=== PATIENT | female | born 1985 | race Caucasian/White ===

== ENCOUNTER 2018-01-12 03:45 | Emergency (ER) | payer MEDICAID, SELFPAY ==
--- NOTE | 2018-01-12 03:45 | DT_ITS ---
This patient was seen during an EMR downtime January 05, 2018 - January 12, 2018. This patient may have a combination of paper and electronic documentation or all paper documentation. All documentation is viewable within the e-chart portion of [facility] for each patient visit.
--- NOTE | 2018-01-12 04:00 | RAD_ITS ---
STUDY: X-RAY - RIGHT HAND REASON FOR EXAM: Female, 32 years old. Pain and swelling. TECHNIQUE: 3 view(s) of the hand. COMPARISON: None. FINDINGS: Normal radiocarpal articulation. Normal distal radioulnar joint. Normal visualized carpal bones. Normal carpal articulations Normal carpometacarpal articulation of the thumb. Normal second through fifth carpometacarpal joints. Normal metacarpi. No erosions. Normal metacarpophalangeal joint of the thumb. Normal interphalangeal joint of the thumb. Normal proximal and distal phalanges of the thumb. Normal metacarpophalangeal joints of the second through fifth fingers. Possible flexion deformity proximal interphalangeal joint of the little finger. Normal phalanges of the second through fifth fingers. Soft tissue swelling dorsum of hand. RAD/Hand Min 3 Views IMPRESSION: Soft tissue swelling, no fracture identified. Flexion deformity PIP joint of the finger. Electronically Signed: Da Dean MD at 4:46 EDT , Service support ,
== END 2018-01-12 03:48 | disposition short-term general hospital (02) ==
LOC: ED 08:46
PROVIDERS: Emergency Provider Emergency Medicine; Family Provider Family Medicine; PCP Family Medicine
DX: T79.A11A Traumatic compartment syndrome of right upper extremity, initial encounter (principal); X58.XXXA Exposure to other specified factors, initial encounter; Z79.899 Other long term (current) drug therapy
CPT/HCPCS: 36415; 73130; 96374; 96375; 99284; A4216; J2405

== ENCOUNTER 2020-12-15 13:29 | Outpatient (RCR) | payer MEDICAID, SELFPAY ==
[2020-12-15 11:45] VITALS: BP 125/70; PULSE 109; TEMP 37.6
--- NOTE | 2020-12-15 13:05 | HP.PCM_ITS ---
History of Present Illness Date of Service: 12/15/20 Chief Complaint: Left thigh ulcer, several other ulcers of lower extremities History of Wound: Sil is a pleasant 34-year-old white female who presents to the wound healing center today (12/15/2020) for initial evaluation of her chronic nonhealing ulcers. She was referred here by her infectious disease physician, Lianet Ortez. She has been scheduled for appointments several times at the [facility] wound healing center, but has frequently no-showed. Her past medical history is significant for substance abuse (including IV substance abuse (heroin)), MRSA, and hepatitis C. she states she has been sober for a year, however her note from infectious disease reports she had a relapse around March 2020. She is currently on Subutex. Her partner also has a history of substance abuse and suffers from similar ulcers. They live together. She has not been treated for hep C, but desires to undergo treatment with her partner. Her primary concern today is her left thigh ulcer, which she states is the newest of her ulcers and occurred in the last several months. However, she reports her left thigh ulcer has decreased in size in the last several weeks. When asked how long her remaining ulcers have been present, she was unable to provide specific detail but reports they have been present for years. She states that her right lateral leg ulcer and left dorsal foot ulcer have been the most longstanding of her chronic ulcers. She has ulcers present on her left arm, left thigh, left dorsal foot, right warren, right lateral leg, right medial foot and right second toe. She reports she was previously seen at a wound healing center but stopped seeing them due to having a negative experience. At that time, she was advised to increase her protein and vitamin C. She reports poor nutritional status, stating she is a very picky eater. She is a smoker. She has been applying nonstick dressings to her ulcers daily and cleansing them intermittently with Hibiclens. She denies any known history of vascular disease. She has not been on any antibiotics in recent months. In the past she was treated with doxycycline and Bactrim for MRSA, and reports tolerating these well. A wound culture collected 07/07/2020 from an abscess demonstrated growth of skin jason which did not include staph aureus, beta-hemolytic streptococci or P. aeruginosa. The patient denies fever, chills, general malaise, or poor appetite. The patient has not had increased redness, swelling, or purulent/malodorous drainage from affected area. [facility] Medical History (Updated 12/15/20 @ 13:17 by Ely Muro NP, BUSINESS INTELLIGENCE DIRECTOR-C) Chronic ulcer of left foot with fat layer exposed Chronic ulcer of left thigh with fat layer exposed Chronic ulcer of right foot with fat layer exposed Chronic ulcer of right leg with fat layer exposed Nonhealing ulcer of upper extremity with fat layer exposed Home Medications oxycodone-acetaminophen 1 - 2 tab PO Q4H PRN PRN #10 tab 01/18/15 [Rx Last Taken 01/19/15] promethazine 25 mg PO Q6H PRN PRN #10 tablet 01/18/15 [Rx Last Taken 01/19/15] oxycodone-acetaminophen [Percocet 7.5-325 mg Tablet] 1 tab PO Q6H PRN PRN #10 tab 02/03/15 [Rx Last Taken Unknown] cyclobenzaprine 10 mg PO TID PRN #20 tablet 02/06/15 [Rx Last Taken Unknown] doxycycline monohydrate 100 mg PO BID 14 Days #28 cap 12/15/20 [Rx Last Taken Unknown] Allergy/AdvReac Type Severity Reaction Status Date / Time No Known Allergies Allergy Verified 07/19/14 18:11 Social History Smoking Status: Current every day smoker ROS Constitutional Constitutional: Denies chills, fever(s) or night sweats Eyes Eyes: Denies change in vision or double vision ENT HEENT: Denies lip swelling or tongue swelling Cardiovascular Cardiovascular: Denies chest pain, leg edema or palpitations Respiratory/Chest Respiratory/Chest: Denies cough, shortness of breath at rest, shortness of breath with exertion or wheezing Gastrointestinal Gastrointestinal: Denies diarrhea, nausea or vomiting Genitourinary Genitourinary: Denies dysuria or hematuria Musculoskeletal Musculoskeletal: Denies abnormal gait, extremity pain, muscle weakness, numbness or tingling Integumentary Integumentary: Reports wounds; Denies rash Neurologic Neurologic: Denies abnormal gait, abnormal speech or focal weakness Endocrine Endocrinology: Denies cold intolerance, heat intolerance, polydipsia or polyuria Hematologic/Lymphatic Hematologic/Lymphatic: Denies easy bleeding or easy bruising Vital Signs Vital Signs Vital Signs: 12/15/20 11:45 Temperature 99.6 F H Temperature Source Temporal Pulse Rate 109 H Blood Pressure 125/70 H Blood Pressure Mean 88 Blood Pressure Source Monitor Blood Pressure Position Semi-Fowlers Blood Pressure Location Right Arm Physical Exam Const alert and no apparent distress; Negative for well nourished General Appearance: cooperative and anxious; Negative for in distress HEENT Head and Scalp: normocephalic and atraumatic Eyes EOMs intact bilaterally Neck supple and no JVD Resp normal respiratory effort, normal air movement and no use of accessory muscles Auscultation: clear to auscultation bilaterally and rhonchi right upper; Negative for crackles, rales or wheezes Cardio regular rate and regular rhythm GI normal to inspection, nondistended, normoactive bowel sounds Extremity normal capillary refill, no joint enlargement, no clubbing, cyanosis or edema, no calf tenderness and no pedal edema Peripheral Pulses: Yes dorsalis pedis pulses present bilateral 2+ Skin Rashes: No no rashes Wounds: wounds noted No malodorous Wound Narrative: Numerous wounds present with subcutaneous layer exposed. No tunneling, undermining, or probing to bone noted. Left arm, left thigh, left dorsal foot, right warren, right second toe, right medial foot, and right lateral leg worked up for ulcers. Copious amounts of slough and devitalized tissue present on the right lateral leg and left dorsal foot ulcers. Large amounts of slough and devitalized tissue present on all other ulcers. No rashes noted. No periulcer edema or warmth noted at any of the sites. Patient has severe intolerance to palpation/manipulation of ulcers. Neuro oriented x3, moves all extremities and no focal motor deficits Psych mental status grossly normal, cooperative and affect normal Debridement Note Debridement Note Post-Debridement Measurements and Additional Note: Post-Debridement Measurements/Treatment DAYO - Nurse 1 - General Ulcer Assessment Start: 12/15/20 11:15 Freq: Status: Active Protocol: HANNAH Activity Type Activity Date Activity User E-Sign Co-Sign Detail Recorded Client Recorded Date Recorded By Document 12/15/20 11:15 DL [id number] 12/15/20 11:17 DL Document 12/15/20 11:45 KR [id number] 12/15/20 11:53 KR 12/15/20 12/15/20 11:15 11:45 - Today's Visit Information Type of service Initial Visit Arrival Mode Ambulatory Patient Identification Verified (Name & Yes ) Vital Signs Temperature (97.8 F-99.1 F) 99.6 F H Temperature Source Temporal Pulse Rate (60-100) 109 H Pulse Location Monitor Blood Pressure (90/60-120/80) 125/70 H Blood Pressure Mean 88 Source Monitor Position Semi-Fowlers Blood Pressure Location Right Arm History Since Last Visit- (Skip if this is Patient's initial visit) Have you changed medications since your No last visit? Any new allergies or adverse reactions No Had a fall/change in ADL's that may No increase risk of falls Signs or symptoms of abuse and/or No neglect since last visit Have you been in the hospital since your No last visit? Has dressing in place as prescribed No Has compression in place as prescribed N/A Has offloadiing in place as prescribed N/A Experienced any changes in pain level or No management Left Footwear Regular Shoe Right Footwear Regular Shoe Pain Scale: 0-10 Numeric Is Patient Pain Free? Yes Lower Extremity Assessment/ Foot Assessment/ Toe Nail Assessment Left -Posterior Tibial Palpable Yes -Posterior Tibial Doppler Multiphasic -Dorsalis Pedis Palpable Yes -Dorsalis Pedis Doppler Multiphasic -Extremity Color Mottled -Hair Growth on Legs No -Hair Growth on Toes No -Temperature of Extremity Cool -Capillary Refill Less than 3 Seconds -Dependent Rubor No -Blanched when Elevated No -Lipodermatosclerosis No -Other Deformity No -Prior Foot Ulcer No -Charcot Joint No -Prior Amputation No -Thick Yes -Discolored Yes -Deformed No -Improper Length & Hygeine No Right -Posterior Tibial Palpable Yes -Posterior Tibial Doppler Multiphasic -Dorsalis Pedis Palpable Yes -Dorsalis Pedis Doppler Multiphasic -Extremity Color Mottled -Hair Growth on Legs No -Hair Growth on Toes No -Temperature of Extremity Cold -Capillary Refill Less than 3 Seconds -Dependent Rubor No -Blanched when Elevated No -Lipodermatosclerosis No -Other Deformity No -Prior Foot Ulcer No -Charcot Joint No -Prior Amputation No -Thick Yes -Discolored Yes -Deformed No -Improper Length & Hygeine No Neuropathy Assessment Feet - Top Side and Bottom <Entered> (a) (a) 1 - + WC - Nurse 1 - General Ulcer Measurement Start: 12/15/20 11:15 Freq: Status: Active Protocol: Activity Type Activity Date Activity User E-Sign Co-Sign Detail Recorded Client Recorded Date Recorded By Document 12/15/20 11:45 SARANYA [id number] 12/15/20 11:53 SARANYA 12/15/20 11:45 Wound Center Nurse 1 #8 Right 2cd Toe -Current Size (cm) - Length 3.6 -Current Size (cm) - Width 2.4 -Current Size (cm) - Depth 0.2 -Total Square Cm 8.64 -Exudate Amt Medium -Exudate Type Serosanguineous -Wound Margin Distinct, Outline Attached -Granulation Amt Medium (34-66%) -Granulation Quality Red -Necrosis Amt Medium (34-66%) -Necrotic Tissue Type Adherent Slough -Texture (Manda-wound Skin Appearance) Assessed, Scarring -Moisture (Manda-wound Skin Appearance) No Abnormality, Assessed -Color (Manda-wound Skin Appearance) No Abnormality, Assessed -Temperature (Manda-wound Skin No Abnormality Appearance) (Pt Warm) -Tenderness on Palpation (Manda-wound No Skin Appearance) -Ulcer Cleansing Rinsed/ Irrigated with Saline -Foul Odor after Cleansing No -Anesthetic Used 4% Lidocaine Solution,5% Lidocaine Gel #7 Right Medial Foot -Current Size (cm) - Length 0.9 -Current Size (cm) - Width 1.8 -Current Size (cm) - Depth 0.2 -Total Square Cm 1.62 -Exudate Amt Medium -Exudate Type Serosanguineous -Wound Margin Distinct, Outline Attached -Granulation Amt Medium (34-66%) -Granulation Quality Red -Necrosis Amt Medium (34-66%) -Necrotic Tissue Type Adherent Slough -Texture (Manda-wound Skin Appearance) Assessed, Scarring -Moisture (Manda-wound Skin Appearance) No Abnormality, Assessed -Color (Manda-wound Skin Appearance) No Abnormality, Assessed -Temperature (Manda-wound Skin No Abnormality Appearance) (Pt Warm) -Tenderness on Palpation (Manda-wound No Skin Appearance) -Ulcer Cleansing Rinsed/ Irrigated with Saline -Foul Odor after Cleansing No -Anesthetic Used 4% Lidocaine Solution,5% Lidocaine Gel #6 Right lat foot -Current Size (cm) - Length 2 -Current Size (cm) - Width 1.9 -Current Size (cm) - Depth 0.2 -Total Square Cm 3.8 -Exudate Amt Small -Exudate Type Serosanguineous -Wound Margin Distinct, Outline Attached -Granulation Amt Medium (34-66%) -Granulation Quality Red -Necrosis Amt Medium (34-66%) -Necrotic Tissue Type Adherent Slough -Texture (Manda-wound Skin Appearance) Assessed, Scarring -Moisture (Manda-wound Skin Appearance) No Abnormality, Assessed -Color (Manda-wound Skin Appearance) No Abnormality, Assessed -Temperature (Manda-wound Skin No Abnormality Appearance) (Pt Warm) -Tenderness on Palpation (Manda-wound No Skin Appearance) -Ulcer Cleansing Rinsed/ Irrigated with Saline -Foul Odor after Cleansing No -Anesthetic Used 4% Lidocaine Solution,5% Lidocaine Gel #5 Right Lat Leg -Current Size (cm) - Length 9.8 -Current Size (cm) - Width 6.3 -Current Size (cm) - Depth 0.2 -Total Square Cm 61.74 -Exudate Amt Small -Exudate Type Serosanguineous -Wound Margin Distinct, Outline Attached -Granulation Amt Medium (34-66%) -Granulation Quality Red -Necrosis Amt Medium (34-66%) -Necrotic Tissue Type Adherent Slough -Texture (Manda-wound Skin Appearance) Assessed, Scarring -Moisture (Manda-wound Skin Appearance) No Abnormality, Assessed -Color (Manda-wound Skin Appearance) No Abnormality, Assessed -Temperature (Manda-wound Skin No Abnormality Appearance) (Pt Warm) -Tenderness on Palpation (Manda-wound No Skin Appearance) -Ulcer Cleansing Rinsed/ Irrigated with Saline -Foul Odor after Cleansing No -Anesthetic Used 4% Lidocaine Solution,5% Lidocaine Gel #4 Right Warren -Current Size (cm) - Length 1.5 -Current Size (cm) - Width 0.8 -Current Size (cm) - Depth 0.1 -Total Square Cm 1.20 -Exudate Amt Medium -Exudate Type Serosanguineous -Wound Margin Distinct, Outline Attached -Granulation Amt Medium (34-66%) -Granulation Quality Red -Necrosis Amt Medium (34-66%) -Necrotic Tissue Type Adherent Slough -Texture (Manda-wound Skin Appearance) Assessed, Scarring -Moisture (Manda-wound Skin Appearance) No Abnormality, Assessed -Color (Manda-wound Skin Appearance) No Abnormality, Assessed -Temperature (Manda-wound Skin No Abnormality Appearance) (Pt Warm) -Tenderness on Palpation (Manda-wound No Skin Appearance) -Ulcer Cleansing Rinsed/ Irrigated with Saline -Foul Odor after Cleansing No -Anesthetic Used 4% Lidocaine Solution,5% Lidocaine Gel #3 Left Dorsal Foot -Current Size (cm) - Length 5.7 -Current Size (cm) - Width 2.6 -Current Size (cm) - Depth 0.3 -Total Square Cm 14.82 -Exudate Amt Small -Exudate Type Serosanguineous -Wound Margin Distinct, Outline Attached -Granulation Amt Medium (34-66%) -Granulation Quality Red -Necrosis Amt Medium (34-66%) -Necrotic Tissue Type Adherent Slough -Texture (Manda-wound Skin Appearance) Assessed, Scarring -Moisture (Manda-wound Skin Appearance) No Abnormality, Assessed -Color (Manda-wound Skin Appearance) No Abnormality, Assessed -Temperature (Manda-wound Skin No Abnormality Appearance) (Pt Warm) -Tenderness on Palpation (Manda-wound No Skin Appearance) -Ulcer Cleansing Rinsed/ Irrigated with Saline -Foul Odor after Cleansing No -Anesthetic Used 4% Lidocaine Solution,5% Lidocaine Gel #2 Left Thigh -Current Size (cm) - Length 4.5 -Current Size (cm) - Width 6 -Current Size (cm) - Depth 0.2 -Total Square Cm 27.0 -Exudate Amt Small -Exudate Type Serosanguineous -Wound Margin Distinct, Outline Attached -Granulation Amt Medium (34-66%) -Granulation Quality Red -Necrosis Amt Medium (34-66%) -Necrotic Tissue Type Adherent Slough -Texture (Manda-wound Skin Appearance) Assessed, Scarring -Moisture (Manda-wound Skin Appearance) No Abnormality, Assessed -Color (Manda-wound Skin Appearance) No Abnormality, Assessed -Temperature (Manda-wound Skin No Abnormality Appearance) (Pt Warm) -Tenderness on Palpation (Manda-wound No Skin Appearance) -Ulcer Cleansing Rinsed/ Irrigated with Saline -Foul Odor after Cleansing No -Anesthetic Used 4% Lidocaine Solution,5% Lidocaine Gel #1 Left Arm -Current Size (cm) - Length 6 -Current Size (cm) - Width 5 -Current Size (cm) - Depth 0.3 -Total Square Cm 30 -Exudate Amt Medium -Exudate Type Serosanguineous -Wound Margin Distinct, Outline Attached -Granulation Amt Medium (34-66%) -Granulation Quality Red -Necrosis Amt Medium (34-66%) -Necrotic Tissue Type Adherent Slough -Texture (Manda-wound Skin Appearance) Assessed, Scarring -Moisture (Manda-wound Skin Appearance) No Abnormality, Assessed -Color (Manda-wound Skin Appearance) No Abnormality, Assessed -Temperature (Manda-wound Skin No Abnormality Appearance) (Pt Warm) -Tenderness on Palpation (Manda-wound No Skin Appearance) -Ulcer Cleansing Rinsed/ Irrigated with Saline -Foul Odor after Cleansing No -Anesthetic Used 4% Lidocaine Solution,5% Lidocaine Gel Right Calf (cm) 34.2 Right Ankle (cm) 22 Left Calf (cm) 34 Point of Measurement (cm from the medial 22.4 instep) WC - Nurse 2 - General Ulcer CM Notes Start: 12/15/20 11:15 Freq: Status: Active Protocol: Activity Type Activity Date Activity User E-Sign Co-Sign Detail Recorded Client Recorded Date Recorded By Document 12/15/20 11:54 IDALIA [id number] 12/15/20 12:35 IDALIA 12/15/20 11:54 Wound Center Nurse 2 #8 Right 2cd Toe -Time 12:28 -Correct Patient No -Correct Side, Site, Position No -Correct Procedure No -Procedure Performed No #7 Right Medial Foot -Correct Patient No -Correct Side, Site, Position No -Correct Procedure No -Procedure Performed No -Circular Undermining No -Wound/Ulcer Outcome Not Healed #6 Right lat foot -Correct Patient No -Correct Side, Site, Position No -Correct Procedure No -Procedure Performed No -Circular Undermining No -Wound/Ulcer Outcome Not Healed #5 Right Lat Leg -Correct Patient No -Correct Side, Site, Position No -Correct Procedure No -Procedure Performed No -Circular Undermining No -Wound/Ulcer Outcome Not Healed #4 Right Warren -Correct Patient No -Correct Side, Site, Position No -Correct Procedure No -Procedure Performed No -Circular Undermining No -Wound/Ulcer Outcome Not Healed #3 Left Dorsal Foot -Time 12:31 -Correct Patient Yes -Correct Side, Site, Position Yes -Correct Procedure Yes -Procedure Performed Yes -Type of Procedure Debridement -Clinical Debridement Subcutaneous -Tissue Removed Subcutaneous -Post Debridement (cm) - Length 2.8 -Post Debridement (cm) - Width 1.3 -Post Debridement (cm) - Depth 0.1 -Total Square (Post) (cm) 3.64 -Area of Debridement (cm) - Length 2.8 -Area of Debridement (cm) - Width 1.3 -Total Square (Area) (cm) 3.64 -Tunneling No -Undermining/Tunneling No -Circular Undermining No -Wound/Ulcer Outcome Not Healed -Ulcer Cleansing Rinsed/ Irrigated with Saline -Foul Odor after Cleansing No -Bioengineered Tissue No -Bleeding Controlled with Pressure -Offloading No -Treatment Response Procedure Tolerated Well -Debridement - Subq, 1st 20sq cm Yes #2 Left Thigh -Time 12:32 -Correct Patient Yes -Correct Side, Site, Position Yes -Correct Procedure Yes -Procedure Performed Yes -Type of Procedure Debridement -Clinical Debridement Subcutaneous -Tissue Removed Subcutaneous -Post Debridement (cm) - Length 0.4 -Post Debridement (cm) - Width 0.6 -Post Debridement (cm) - Depth 0.1 -Total Square (Post) (cm) 0.24 -Area of Debridement (cm) - Length 0.4 -Area of Debridement (cm) - Width 0.6 -Total Square (Area) (cm) 0.24 -Tunneling No -Undermining/Tunneling No -Circular Undermining No -Wound/Ulcer Outcome Not Healed -Ulcer Cleansing Rinsed/ Irrigated with Saline -Foul Odor after Cleansing No -Bioengineered Tissue No -Bleeding Controlled with Pressure -Offloading No -Treatment Response Procedure Tolerated Well -Debridement - Subq, 1st 20sq cm No #1 Left Arm -Correct Patient No -Correct Side, Site, Position No -Correct Procedure No -Procedure Performed No -Tunneling No -Undermining/Tunneling No -Circular Undermining No -Wound/Ulcer Outcome Not Healed Pain Scale: 0-10 Numeric Is Patient Pain Free? Yes WC - Nurse 3 - General Ulcer D/C NN Start: 12/15/20 11:15 Freq: Status: Active Protocol: Activity Type Activity Date Activity User E-Sign Co-Sign Detail Recorded Client Recorded Date Recorded By Document 12/15/20 12:39 SARANYA [id number] 12/15/20 12:41 SARANYA 12/15/20 12:39 Wound Care Nurse 3 #8 Right 2cd Toe -Ulcer Cleansing Rinsed/ Irrigated with Saline -Primary Dressing Applied Aquacel Extra -Primary Dressing Covered/Secured with Dry Gauze,Dry Gauze & Roll Gauze,Secured with Tape -Aquacel Extra 4 #7 Right Medial Foot -Primary Dressing Covered/Secured with Dry Gauze, Secured with Tape #6 Right lat foot -Ulcer Cleansing Rinsed/ Irrigated with Saline -Primary Dressing Covered/Secured with Dry Gauze, Secured with Tape #5 Right Lat Leg -Ulcer Cleansing Rinsed/ Irrigated with Saline -Primary Dressing Covered/Secured with Dry Gauze,Dry Gauze & Roll Gauze,Secured with Tape #4 Right Warren -Ulcer Cleansing Rinsed/ Irrigated with Saline -Primary Dressing Covered/Secured with Dry Gauze, Secured with Tape #3 Left Dorsal Foot -Primary Dressing Covered/Secured with Dry Gauze, Secured with Tape #2 Left Thigh -Primary Dressing Covered/Secured with Dry Gauze, Secured with Tape #1 Left Arm -Ulcer Cleansing Rinsed/ Irrigated with Saline -Primary Dressing Covered/Secured with Dry Gauze,Dry Gauze & Roll Gauze,Secured with Tape Pain Scale: 0-10 Numeric Is Patient Pain Free? Yes WC - Visit Discharge Discharge Condition Stable Ambulatory Status Ambulatory Transportation Private Auto Accompanied by self Wound debrided: Left dorsal foot ulcer Laterality: Left Type of Debridement: Excisional debridement Anesthesia Used: 5% Lidocaine Gel and Cetacaine Depth: in the subcutaneous layer Percentage of wound debrided: 50 Instrument Used: 7mm curette Tissue Removed: Slough and devitalized tissue Severity: Fat Layer Exposed Amount of bleeding with debridement: Mild Bleeding Controlled with: Pressure Patient tolerated procedure: Patient did not tolerate procedure well Additional Wound Wound debrided: Left thigh ulcer Laterality: Left Type of Debridement: Excisional debridement Anesthesia Used: 5% Lidocaine Gel and Cetacaine Depth: in the subcutaneous layer Percentage of wound debrided: 10 Instrument Used: 7mm curette Tissue Removed: Slough and devitalized tissue Severity: Fat Layer Exposed Amount of bleeding with debridement: Mild Bleeding Controlled with: Pressure Patient tolerated procedure: Patient did not tolerate procedure well Assessment & Plan Assessment/Plan (1) Chronic ulcer of right leg with fat layer exposed: (2) Chronic ulcer of right foot with fat layer exposed: (3) Chronic ulcer of left foot with fat layer exposed: (4) Chronic ulcer of left thigh with fat layer exposed: (5) Nonhealing ulcer of upper extremity with fat layer exposed: PLAN: Debridement performed today in clinic as annotated above. The patient did not tolerate debridement well, and stated she was unable to proceed with full debridement of all ulcers. Debridement of left dorsal foot was attempted and approximately 50% completed before patient was unable to tolerate further debridement. 10% debridement of the left thigh ulcer was achieved in order to obtain an accurate culture. Aquacel Ag applied to the left arm, left thigh, left dorsal foot, right warren, right second toe, right medial foot, and right lateral leg ulcers. At home wound-care instructions: Change Aquacel Ag dressings once daily or more frequently as needed due to contamination. Wash wounds daily with antibacterial soap and water, rinse and dry thoroughly before each dressing change. When Santyl arrives, switch from Aquacel Ag dressings to daily dressings of nickel- thick layer of Santyl and gauze. Compression: Double Tubigrip's applied to the bilateral lower extremities. Patient should wear these daily. Off-loading: The patient was instructed to avoid pressure and friction on the affected areas. Reposition every 2 hours at minimum. Avoid prolonged standing and/or dangling of legs. When seated, feet should be elevated at chest level. Frequent ambulation is encouraged. Diet: Patient encouraged to increase protein intake while taking caution to avoid high carbohydrate and/or sugar intake. Smoking: The risks of smoking and benefits of smoking cessation were discussed with the patient today. The patient is encouraged to quit smoking. If smoking cessation aids are desired, the patient should contact their primary care provider to discuss appropriate options. Labs/cultures/imaging: Doxycycline 100 mg twice daily x14 days prescribed today and patient was instructed on the use of this antibiotic. Cultures ordered and collected today from left thigh ulcer. If culture results warrant a change in antibiotics, the patient will be contacted. Routine baseline lab work ordered. Vascular studies ordered. X-rays of left foot and right tibia/fibula ordered to evaluate the longstanding nonhealing ulcers of the sites. The patient is unable to tolerate thorough debridement of her ulcers. The importance of debridement and the role it plays in wound healing was discussed at length with the patient. I feel she may benefit from referral to a surgeon for surgical debridement under anesthesia, and a referral will be made. This may reduce the significant bioburden that she is currently exhibiting on her wounds, and make management and/or healing of the wounds more feasible. Following a surgical debridement, I would recommend that she follow-up weekly with the wound healing center to prevent recurrence of significant bioburden of her wounds. Follow-up: Return to clinic in 1 week for re-evaluation. Return sooner or report to the emergency room should symptoms worsen, or new symptoms arise. Greater than 45 minutes were spent by me on today's visit. This time includes coordinating care, reviewing labs/records/history, interpretation of test results, and counseling patient/family. This also includes time spent with the patient for exam, treatment plan, and education as well as documenting clinical information in the electronic health record. Charges/Coding Visit Charges Office Visits / Consults: [id number] OV L4 New Procedures Integumentary [id number]: [id number] Rosario subq tissue 20 sq cm/<
== END 2020-12-15 23:59 | disposition home or self-care (01) ==
LOC: WC 13:29
PROVIDERS: PCP Family Medicine; Visit Provider Nurse Practitioner Family
DX: L97.122 Non-pressure chronic ulcer of left thigh with fat layer exposed (principal); L97.522 Non-pressure chronic ulcer of other part of left foot with fat layer exposed; L97.512 Non-pressure chronic ulcer of other part of right foot with fat layer exposed; L97.812 Non-pressure chronic ulcer of other part of right lower leg with fat layer exposed; L98.492 Non-pressure chronic ulcer of skin of other sites with fat layer exposed; Z86.14 Personal history of Methicillin resistant Staphylococcus aureus infection; F17.200 Nicotine dependence, unspecified, uncomplicated; B19.20 Unspecified viral hepatitis C without hepatic coma
CPT/HCPCS: 11042; 87070; 87075; 87077; 87186; 87205; 99214; G0463

== ENCOUNTER 2021-01-08 14:03 | Outpatient (RCR) | payer MEDICAID, SELFPAY ==
[2021-01-08 14:26] VITALS: BP 114/69; PULSE 88
--- NOTE | 2021-01-08 15:44 | PCM.WC.HP ---
History of Present Illness Date of Service: 01/08/21 Chief Complaint: WOUND CENTER CONSULT Nonhealing painful ulcers left lateral arm, left anterior thigh, dorsum left foot, right lateral leg, dorsum right foot, right medial foot by metatarsal head, dorsum right second toe. REFERRING PROVIDER: Ely Muro NP. STOCKBROKER: Dr. Harris. History of Wound: 35-year-old white female with a history of IV drug abuse came to the Wound Center with multiple painful nonhealing ulcers involving left lateral arm, left anterior thigh, dorsum left foot, right lateral leg, dorsum right foot, right medial foot by metatarsal head, dorsum right second toe. She states they have been here for a few years. They are located in areas where she used Heroin in the past. She also had one on the right anterior leg which has since healed. She also has a history of MRSA and hepatitis C. She has been treated with Doxycycline and Bactrim in the past. She states she has been drug free for about a year and is taking Subutex from Pain Management. She is using Silver for her dressing changes. The ulcers are quite painful and it has been very difficult trying to debride these ulcers at the Wound Center. The patient denies fever. Her appetite is ok. Encourage nutritional supplementation with protein to help the healing process. I was asked to evaluate these ulcers for surgical options for treatment. Progress of Wound: Stable. PFSH Medical History Chronic ulcer of left foot with fat layer exposed Chronic ulcer of left thigh with fat layer exposed Chronic ulcer of right foot with fat layer exposed Chronic ulcer of right leg with fat layer exposed Encounter for monitoring Subutex maintenance therapy Hepatitis C History of heroin abuse History of intravenous drug abuse History of MRSA infection Nonhealing ulcer of upper extremity with fat layer exposed Smoker Home Medications oxycodone-acetaminophen 1 - 2 tab PO Q4H PRN PRN #10 tab 01/18/15 [Rx Last Taken 01/19/15] promethazine 25 mg PO Q6H PRN PRN #10 tablet 01/18/15 [Rx Last Taken 01/19/15] oxycodone-acetaminophen [Percocet 7.5-325 mg Tablet] 1 tab PO Q6H PRN PRN #10 tab 02/03/15 [Rx Last Taken Unknown] cyclobenzaprine 10 mg PO TID PRN #20 tablet 02/06/15 [Rx Last Taken Unknown] Allergy/AdvReac Type Severity Reaction Status Date / Time No Known Allergies Allergy Verified 07/19/14 18:11 Social History Smoking Status: Current every day smoker ROS ROS Narrative Constitutional: Reports: Chills, Malaise, Weakness, Fatigue. Denies: Anorexia, Fever, Night Sweats, Weight Change Eyes: Denies: Blurred vision HEENT: Denies: Head Aches, Sinus Congestion, Sinus Drainage Cardiovascular: Denies: Chest Pain, Palpitations Respiratory: Denies: Cough, Shortness of Breath, Shortness of breath at rest, Shortness of breath upon exertion, Sputum production Gastrointestinal: Denies: Abdominal Pain, Nausea, Vomiting Genitourinary: Denies: Dysuria Musculoskeletal: Reports: Foot Pain. Denies: Joint Pain, Joint Tenderness Skin: Reports: Wounds. Denies: Rash Neurological: Denies: Numbness, Tingling, Focal weakness Psychiatric: Denies: Anxiety, Depression, Homicidal Ideations, Suicidal Ideations Hematologic/ Lymphatic: Denies: Easy Bruising, Easy Bleeding Constitutional Constitutional: Reports change in weight Vital Signs Vital Signs Vital Signs: 01/08/21 14:26 Temperature Source Temporal Pulse Rate 88 Blood Pressure 114/69 Blood Pressure Mean 84 Blood Pressure Source Monitor Blood Pressure Position Sitting Blood Pressure Location Right Arm Oxygen Delivery Method Room Air Physical Exam Narrative General: Alert, Oriented x3. HEENT: PERRLA, EOMI. Oral: Dry Mucosa Neck: Supple, Nontender. No cervical adenopathy. Lungs: - - diminished breath sounds bilaterally. Cardiovascular: Regular rate and rhythm. Abdomen: Soft, Non-Distended. Extremities: No clubbing, No cyanosis, No edema. Has nonhealing ulcers left lateral arm (6 x 5 x 0.3 cm), left anterior thigh (4.5 x 6 x 0.2 cm), dorsum left foot (5.7 x 2.6 x 0.3 cm), right lateral leg (9.8 x 6.3 x 0.2 cm), dorsum right foot (2 x 1.9 x 0.2 cm), right medial foot by metatarsal head (0.9 x 1.8 x 0.2 cm), and dorsum right second toe (3.6 x 2.4 x 0.2 cm). The previous ulcer right anterior leg has healed. These ulcers show some granulation tissue along with some exudate. They are tender to palpation. No purulent drainage noted. Dorsalis pedis pulses are palpable. Radial pulses are palpable. No axillary adenopathy. No inguinal adenopathy. Lymphatic: No Cervical, axillary, or Inguinal Adenopathy Neurological: Cranial nerves II-XII grossly intact. Psych/Mental Status: Normal Affect, Appropriate, Alert and oriented to time, place, person, mood and affect. Debridement Note Debridement Note Post-Debridement Measurements and Additional Note: No debridement was done today as it is very painful for the patient. Will schedule operative debridement with skin grafting. Charges/Coding Visit Charges Office Visits / Consults: 14361 OV L4 New (ICD-10 - L97.912, L97.512, L97.522, L97.122, L98.492, Z86.14, F19.11, F11.11, Z51.81, B19.20, F17.200) Assessment/Plan Assessment/Plan (1) Chronic ulcer of right leg with fat layer exposed: CODE(S): L97.912 - Non-pressure chronic ulcer of unspecified part of right lower leg with fat layer exposed (2) Chronic ulcer of right foot with fat layer exposed: CODE(S): L97.512 - Non-pressure chronic ulcer of other part of right foot with fat layer exposed (3) Chronic ulcer of left foot with fat layer exposed: CODE(S): L97.522 - Non-pressure chronic ulcer of other part of left foot with fat layer exposed (4) Chronic ulcer of left thigh with fat layer exposed: CODE(S): L97.122 - Non-pressure chronic ulcer of left thigh with fat layer exposed (5) Nonhealing ulcer of upper extremity with fat layer exposed: CODE(S): L98.492 - Non-pressure chronic ulcer of skin of other sites with fat layer exposed (6) Smoker: CODE(S): F17.200 - Nicotine dependence, unspecified, uncomplicated (7) History of intravenous drug abuse: CODE(S): F19.11 - Other psychoactive substance abuse, in remission (8) History of heroin abuse: CODE(S): F11.11 - Opioid abuse, in remission (9) Encounter for monitoring Subutex maintenance therapy: CODE(S): Z51.81 - Encounter for therapeutic drug level monitoring; Z79.899 - Other senior care (current) drug therapy (10) History of MRSA infection: CODE(S): Z86.14 - Personal history of Methicillin resistant Staphylococcus aureus infection (11) Hepatitis C: CODE(S): B19.20 - Unspecified viral hepatitis C without hepatic coma PLAN: Continue Silver dressing changes daily to these multiple ulcers. She cannot tolerate debridement at the Wound Center secondary to pain. She will need operative debridement of these ulcers with skin grafting. I plan on skin grafting the left lateral arm, left anterior thigh, dorsum left foot, right lateral leg, and dorsum right foot. The ulcers right medial foot by metatarsal head and dorsum second toe will be debrided and will continue wound care postoperatively. Surgery will be done under general anesthesia on a surgical observation overnight stay in the hospital. After discharge she will followup with her physician who monitors her Subutex. Depending on the healing of the skin grafts, if there is evidence of compromise, she would be a candidate for HBO treatments to help salvage the skin grafts. Tissue that is excised will be sent to Pathology for analysis to rule out carcinoma and to Microbiology for culture. A positive culture will necessitate antibiotic therapy. Patient was informed of the risks and complications of the procedure including alternatives to surgery. These were discussed with the patient personally. Patient voices understanding and wishes to proceed. Encourage nutritional supplementation with protein to help the healing process. Encouraged patient to stop smoking as it may have deleterious effects on wound healing.
== END 2021-01-08 15:11 | disposition home or self-care (01) ==
LOC: WC 14:03
PROVIDERS: PCP Family Medicine; Visit Provider Surgery
DX: L98.492 Non-pressure chronic ulcer of skin of other sites with fat layer exposed (principal); L97.122 Non-pressure chronic ulcer of left thigh with fat layer exposed; L97.512 Non-pressure chronic ulcer of other part of right foot with fat layer exposed; L97.522 Non-pressure chronic ulcer of other part of left foot with fat layer exposed; L97.912 Non-pressure chronic ulcer of unspecified part of right lower leg with fat layer exposed; B19.20 Unspecified viral hepatitis C without hepatic coma; F11.11 Opioid abuse, in remission; F19.11 Other psychoactive substance abuse, in remission; F17.200 Nicotine dependence, unspecified, uncomplicated; Z51.81 Encounter for therapeutic drug level monitoring; Z79.899 Other long term (current) drug therapy; Z86.14 Personal history of Methicillin resistant Staphylococcus aureus infection
CPT/HCPCS: 99213; G0463

== ENCOUNTER 2024-08-30 14:09 | Outpatient (RCR) | payer MEDICAID, SELFPAY ==
[2024-08-30 14:43] VITALS: BP 106/55; PULSE 93; RESP 16; TEMP 36.2
--- NOTE | 2024-08-31 07:31 | HP.PCM_ITS ---
History of Present Illness Date of Service: 08/30/24 Chief Complaint: WOUND CENTER CONSULT 30 August 2024: Wound on the dorsum of the left foot Previous consultation with Dr. Harris (seen in our wound care center in the past) for the following Nonhealing painful ulcers left lateral arm, left anterior thigh, dorsum left foot, right lateral leg, dorsum right foot, right medial foot by metatarsal head, dorsum right second toe. History of Wound: Per chart review from Dr. Harris 35-year-old white female with a history of IV drug abuse came to the Wound Center with multiple painful nonhealing ulcers involving left lateral arm, left anterior thigh, dorsum left foot, right lateral leg, dorsum right foot, right medial foot by metatarsal head, dorsum right second toe. She states they have been here for a few years. They are located in areas where she used Heroin in the past. She also had one on the right anterior leg which has since healed. She also has a history of MRSA and hepatitis C. She has been treated with Doxycycline and Bactrim in the past. She states she has been drug free for about a year and is taking Subutex from Pain Management. She is using Silver for her dressing changes. The ulcers are quite painful and it has been very difficult trying to debride these ulcers at the Wound Center. The patient denies fever. Her appetite is ok. Encourage nutritional supplementation with protein to help the healing process. I was asked to evaluate these ulcers for surgical options for treatment. HPI from 30 August 2024 Megan Mckeon is a delightful 38-year-old female who has recently overcome a severe drug addiction complicated by MRSA infection wounds. She is currently on Subutex and living with her mother. She is doing quite well overall and feels like her health is improving as is her overall situation. The patient presents today as a referral from her hometown of [place] where she has been seeing a photoengraving machine operator/tender for a dorsal foot wound. He referred her to me as he has been having trouble getting the wound to heal despite performing multiple debridements, skin grafting, and reportedly some dermal substitutes although we do not have the completed records. The patient is a poor historian with regards to any details regarding the wound and any interventions that have been performed in the past, but she reports that the wound VAC is recently been applied over the past couple of months and the wound is now more red and healthy and looks better than it ever has. She reports that she has had x-rays and biopsies done recently of the wound. She does not have any of these records present. She reports that the wound on the dorsum of her foot is been present for 6 years. Patient reports that she does not have diabetes and has not any history of vascular problems to the lower extremities. She does smoke nearly 1/2 a pack of cigarettes per day. [facility] Medical History Hepatitis C History of MRSA infection Encounter for monitoring Subutex maintenance therapy History of heroin abuse History of intravenous drug abuse Smoker Nonhealing ulcer of upper extremity with fat layer exposed Chronic ulcer of left thigh with fat layer exposed Chronic ulcer of left foot with fat layer exposed Chronic ulcer of right foot with fat layer exposed Chronic ulcer of right leg with fat layer exposed Home Medications ?Medication ?Instructions ?Recorded ?Last Taken ?Type oxycodone-acetaminophen 5 mg-325 1 - 2 tab PO Q4H PRN PRN Pain #10 01/18/15 01/19/15 Rx mg tablet tabs promethazine 25 mg tablet 25 mg PO Q6H PRN PRN Nausea ##10 01/18/15 01/19/15 Rx oxycodone-acetaminophen 7.5 mg-325 1 tab PO Q6H PRN PRN Pain #10 tabs 02/03/15 Unknown Rx mg tablet (Percocet) cyclobenzaprine 10 mg tablet 10 mg PO TID PRN Muscle Spasm ##20 02/06/15 Unknown Rx Allergy/AdvReac Type Severity Reaction Status Date / Time No Known Allergies Allergy Verified 08/30/24 14:42 Social History Smoking Status: Current every day smoker Vital Signs Vital Signs Vital Signs: 08/30/24 14:43 Temperature 97.1 F L Temperature Source Temporal Pulse Rate 93 Respiratory Rate 16 Blood Pressure 106/55 L Blood Pressure Mean 72 Blood Pressure Source Monitor Blood Pressure Position Sitting Blood Pressure Location Left Arm Oxygen Delivery Method Room Air Physical Exam Narrative General: Patient has scarring in all 4 extremities likely from previous drug abuse, but no active lesions or sores aside from left lower extremity wound on the dorsum of her left foot. Left lower extremity: Dorsal foot wound that measures approximately 5 x 3 cm and has beefy red granulation tissue at the base. There are no exposed tendons, bones or other critical structures. No signs of infection or fluid collections Vascular exam: She has 2+ dorsalis pedis and posterior tibial pulses Sensation: Intact to light touch throughout the entire foot and ankle Inspection: Of note the leg has no signs of chronic venous insufficiency or swelling (no varicosities) Debridement Note Debridement Note No debridement was completed: No debridement was completed today (Debridement was deferred today per patient request) Post-Debridement Measurements and Additional Note: Post-Debridement Measurements/Treatment - Nurse 1 - General Ulcer Assessment Start: 08/30/24 14:39 Freq: Status: Active Protocol: HANNAH Activity Type Activity Date Activity User E-sign Co-sign Detail Recorded Client Recorded Date Recorded By Document 08/30/24 14:43 [email or web address] [id number] 08/30/24 14:55 KW 08/30/24 14:43 - Today's Visit Information Type of service Initial Visit Arrival Mode Ambulatory, Other Arrival Mode (Other) knee scooter Accompanied by mother Patient Identification Verified (Name & Yes ) Vital Signs Temperature (97.8 F-99.1 F) 97.1 F L Temperature Source Temporal Pulse Rate (60-100) 93 Pulse Location Monitor Respiratory Rate (12-18) 16 Respiratory rate source Observation Oxygen Delivery Method Room Air Blood Pressure (90/60-120/80) 106/55 L Blood Pressure Mean 72 Source Monitor Position Sitting Blood Pressure Location Left Arm History Since Last Visit- (Skip if this is Patient's initial visit) Left Footwear Regular Shoe Right Footwear Regular Shoe Pain Scale: 0-10 Numeric Is Patient Pain Free? No left foot -Description Burning,Aching -Alleviating Factors/Interventions Inactivity/ Resting Communication Assessment Preferred language Swedish Chuck Tender Required No Able to Read Yes Able to Write Yes Communication Tools None Caregiver Communication Skills No Impairment Impairment Right Hearing Abillity Normal Left Hearing Abillity Normal Visual Assistive Devices None Teaching Assessment Preferences Verbal,Written, Demonstration Barriers to Learning None Readiness To Learn Excellent Willingness to Engage in Self Management High Activies Readiness to Engage in Self Management High Activities Anxiety Level Calm Cooperation Cooperative Perception Coherent Interest in Health Problem Asks Questions Education Importance Acknowledges Need Does Patient Smoke tobacco or other Yes substances Smoking Status Current every day smoker Is Patient Diabetic No Functional Assessment Recent Decline in Ability to Perform Denies Any Declines Culture/Evangelical/Computer Applications Developer Cultural/Evangelical Needs that may affect No Treatment Plan Would you allow our hospital mushroom picker to No meet you for the purpose of spiritual/ emotional support? Computer Applications Developer to contact place of mormon No WC - Nurse 1 - General Ulcer Measurement Start: 08/30/24 14:39 Freq: Status: Active Protocol: Activity Type Activity Date Activity User E-sign Co-sign Detail Recorded Client Recorded Date Recorded By Document 08/30/24 14:43 KW [id number] 08/30/24 14:55 KW 08/30/24 14:43 Wound Center Nurse 1 #9 LT DORSAL FOOT POST OP -Current Size (cm) - Length 4 -Current Size (cm) - Width 2.5 -Current Size (cm) - Depth 0.5 -Total Square Cm 10.0 -Date of Last Picture (Recall this 08/30/24 field) -Exudate Amt Small -Exudate Type Serosanguineous -Wound Margin Distinct, Outline Attached -Granulation Amt Large (67-100%) -Granulation Quality [place],Red -Necrosis Amt Small (1-33%) -Necrotic Tissue Type Adherent Slough -Texture (Manda-wound Skin Appearance) Assessed -Moisture (Manda-wound Skin Appearance) Assessed, Maceration -Color (Manda-wound Skin Appearance) Assessed, Erythema -Temperature (Manda-wound Skin No Abnormality Appearance) (Pt Warm) -Tenderness on Palpation (Manda-wound No Skin Appearance) -Ulcer Cleansing Soap and Water -Foul Odor after Cleansing No -Anesthetic Used 4% Lidocaine Solution WC - Nurse 2 - General Ulcer CM Notes Start: 08/30/24 14:39 Freq: Status: Active Protocol: Activity Type Activity Date Activity User E-sign Co-sign Detail Recorded Client Recorded Date Recorded By Document 08/30/24 15:23 JF [id number] 08/30/24 15:23 JF 08/30/24 15:23 Wound Center Nurse 2 -Correct Patient No -Correct Side, Site, Position No -Correct Procedure No -Procedure Performed No -Wound/Ulcer Outcome Not Healed Pain Scale: 0-10 Numeric Is Patient Pain Free? Yes WC - Nurse 3 - General Ulcer D/C NN Start: 08/30/24 14:39 Freq: Status: Active Protocol: Activity Type Activity Date Activity User E-sign Co-sign Detail Recorded Client Recorded Date Recorded By Document 08/30/24 15:31 [facility] [id number] 08/30/24 15:32 [facility] 08/30/24 15:31 Wound Care Center Nurse 3 #9 LT DORSAL FOOT POST OP -Ulcer Cleansing Rinsed/ Irrigated with Saline -Foul Odor after Cleansing No -Other Dressing MOIST TO DRY DRSG IN CLINIC. PT DIDN'T BRING VAC SUPPLIES -Primary Dressing Covered/Secured with Dry Gauze & Roll Gauze, Secured with Tape Treatment Response Procedure Tolerated Well Pain Scale: 0-10 Numeric Is Patient Pain Free? Yes WC - Visit Discharge Discharge Condition Stable Ambulatory Status Ambulatory Transportation Private Auto Notes: [employer] Facility Type Home Health Charges/Coding Visit Charges Office Visits / Consults: [id number] OV L4 New 45min Assessment/Plan Assessment/Plan (1) Chronic ulcer of left foot with fat layer exposed: CODE(S): L97.522 - Non-pressure chronic ulcer of other part of left foot with fat layer exposed PLAN: I talked the patient extensively about the possibility of skin grafting. I believe that the wound is healthy in appearance and ready for reconstruction. We talked about the postoperative process with the wound VAC, and postoperative care of the skin graft so has not to hurt it as it heals. I would like to see her recent x-rays of the foot to make sure there is no underlying osteomyelitis or other problem. I would also like to see the recent biopsy results as the wound is 6 years old and I need recent information to rule out any malignancy (otherwise I will need to rebiopsy). We are obtaining those records. Continue wound VAC in the meantime and follow-up with me in 2 weeks for further discussion. Patient happy with the plan
--- NOTE | 2024-08-31 09:33 | WC ---
PHOTO LEFT DORSAL FOOT 08/30/24
== END 2024-09-03 23:59 | disposition home or self-care (01) ==
LOC: WC 14:09
PROVIDERS: Visit Provider Surgery Plastic and Reconstructive Surgery
DX: L97.522 Non-pressure chronic ulcer of other part of left foot with fat layer exposed (principal); F19.11 Other psychoactive substance abuse, in remission; F11.11 Opioid abuse, in remission; F17.210 Nicotine dependence, cigarettes, uncomplicated; Z79.899 Other long term (current) drug therapy; Z86.14 Personal history of Methicillin resistant Staphylococcus aureus infection; Z86.19 Personal history of other infectious and parasitic diseases
CPT/HCPCS: 99214; G0463